=== PATIENT | female | born 1945 | race Two or more races ===

== ENCOUNTER 2024-03-29 11:47 | Emergency (ER) | payer OTHER ==
[~2024-03-29] VITALS: Ht 152.4 cm; Wt 76.0 kg
[2024-03-29 11:49] VITALS: BP 154/104; RESP 18; O2SAT 98
--- NOTE | 2024-03-29 12:10 | ED.PDOC ---
HPI (NEURO) HPI Comments 78 y.o female with PMHx of arthritis, presents to the ED for a chief complaint of left sided facial droop that started one hour ago. Patient was BIB daughter who reports her son noticed patient's droop at home. Patient is ambulatory with assistance by daughter, denies any focal extremity weaknesses or numbness sensation. Patient is alert and oriented x 4. Patient mentions having left leg surgery, unknown of what procedure x 2 years ago and has chronic numbness to that side. She denies any slurred speech, confusions, nausea, vomiting, abdominal pain, fever, or chills. Patient did mention chest pain last night but since has resolved on its own. Upon ED arrival, blood pressure read 154/104. Chief Complaint: Right Sided Weakness Time Seen by MD: 11:48 Primary Care Provider: divya Reyes Notes: Nurses Notes, Medications, Allergies Information Source: Patient Mode of Arrival: Ambulatory Severity: Moderate Timing: Hours Onset: At rest Circumstances: Spontaneous History of: None Modifying factors: Nothing Associated Signs and Symptoms: Other Past Medical History PAST MEDICAL HISTORY: Arthritis Past Medical History (Other): chronic back pain Surgical History: Hysterectomy Surgical History (Other): left hip CORRECTIONS CADET History: No Pertinent CORRECTIONS CADET History Family History Family History: Reviewed,noncontributory to illness Social History Smoker: Cigarettes Alcohol: Denies ETOH Use Drugs: Denies Drug Use Lives In: Home Constitutional: denies: chills, diaphoresis, fatigue, fever, malaise, sweats, weakness, others EENTM: denies: blurred vision, double vision, ear bleeding, ear discharge, ear drainage, ear pain, ear ringing, eye pain, eye redness, hearing loss, mouth sirena n, mouth swelling, nasal discharge, nose bleeding, nose congestion, nose pain, photophobia, tearing, throat pain, throat swelling, voice changes, others Respiratory: denies: cough, hemoptysis, orthopnea, SOB at rest, shortness of breath, SOB with excertion, stridor, wheezing, others Cardiovascular: denies: chest pain, dizzy spells, diaphoresis, Dyspnea on exertion, edema, irregular heart beat, left arm pain, lightheadedness, palpitations, PND, syncope, others Gastrointestinal: denies: abdomen distended, abdominal pain, blood streaked bowels, constipated, diarrhea, dysphagia, difficulty swallowing, hematemesis, melena, nausea, poor appetite, poor fluid intake, rectal bleeding, rectal pain, vomiting, others Genitourinary: denies: abnormal vagina bleeding, burning, dyspareunia, dysuria, flank pain, frequency, hematuria, incontinence, pain, , vagina discharge, urgency, others Neurological: reports: others (left sided facial droop ); denies: dizziness, fainting, headache, left sided numbness, left sided weakness, numbness, paresthesia, pre-existing deficit, right sided numbness, right sided weakness, seizure, speech problems, tingling, tremors, weakness Musculoskeletal: denies: back pain, gout, joint pain, joint swelling, muscle pain, muscle stiffness, neck pain, others Integumetry: denies: bruises, change in color, change in hair/nails, dryness, laceration, lesions, lumps, rash, wounds, others Allergic/Immunocompromised: denies: Difficulty Healing, Frequent Infections, Hives, Itching, others Hematologic/Lymphatic: denies: anemia, blood clots, easy bleeding, easy bruising, swollen glands, others Endocrine: denies: excessive hunger, excessive sweating, excessive thirst, excessive urination, flushing, intolerance to cold, intolerance to heat, unexplained weight gain, unexplained weight loss, others Psychiatric: denies: anxiety, bipolar disorder, depression, hopeless, panic disorder, schizophrenia, sleepless, suicidal, others All Other Systems: Reviewed and Negative Physical Exam General Appearance: Mild Distress HEENT: Normal ENT Inspection, Pharynx Normal, TMs Normal Neck: Full Range of Motion, Non-Tender, Normal, Normal Inspection Respiratory: Chest Non-Tender, Lungs Clear, No Accessory Muscle Use, No Respiratory Distress, Normal Breath Sounds Cardiovascular: No Edema, No JVD, No Murmur, No Gallop, Normal Peripheral Pulses, Regular Rate/Rhythm Breast Exam: Deferred Gastrointestinal: No Organomegaly, Non Tender, No Pulsatile Mass, Normal Bowel Sounds, Soft Genitalia: Deferred Pelvic: Deferred Rectal: Deferred Extremities: No calf tenderness, Normal capillary refill, Normal inspection, Normal range of motion, Non-tender, No pedal edema Musculoskeletal : Apperance: Normal Neurologic: Alert, Facial Droop (Left-sided facial droop), Normal Affect, Normal Mood, No Sensory Deficits Cerebellar Function: Normal Reflexes: Normal Skin: Dry, Normal Color, Warm Lymphatic: No Adenopathy EKG EKG : Pulse Rate (adult): 77 [place]: Normal Cardiac Rhythm: NSR ST: Nonsp Was a procedure done? Was a procedure done?: No Differential Diagnosis (SZ) Seizure: N/A CVA: Casarez's Palsy, CVA, Delirium Tremens, Electrolyte Imbalance, TIA General Weakness: Electrolyte imbalance X-Ray, Labs, Meds, VS Vital Signs Date Time Temp Pulse Resp B/P (MAP) Pulse Ox O2 Delivery O2 Flow Rate FiO2 03/29/24 12:27 77 03/29/24 11:57 77 03/29/24 11:49 98.2 94 18 204/112 (142) 98 154/104 (121) Lab Test 03/29/24 13:27 Range/Units White Blood Count 7.7 4.4-10.8 10^3/uL Red Blood Count 4.55 4.0-5.20 10^6/uL Hemoglobin 13.8 12.2-16.2 g/dL Hematocrit 40.6 36.0-46.0 % Mean Corpuscular Volume 89.2 80.0-100.0 fL Mean Corpuscular Hemoglobin 30.3 28.0-32.0 pg Mean Corpuscular Hemoglobin Concent 34.0 32.0-36.0 g/dL Red Cell Distribution Width 13.5 11.8-14.3 % Platelet Count 270 140-450 10^3/uL Mean Platelet Volume 8.0 6.9-10.8 fL Neutrophils (%) (Auto) 68.4 37.0-80.0 % Lymphocytes (%) (Auto) 22.1 10.0-50.0 % Monocytes (%) (Auto) 7.4 0.0-12.0 % Eosinophils (%) (Auto) 1.6 0.0-7.0 % Basophils (%) (Auto) 0.5 0.0-2.0 % Neutrophils # (Auto) 5.2 1.6-8.6 10 ^3/uL Lymphocytes # (Auto) 1.7 0.4-5.4 10 ^3/uL Monocytes # (Auto) 0.6 0-1.3 10 ^3/uL Eosinophils # (Auto) 0.1 0-0.8 10 ^3/uL Basophils # (Auto) 0 0-0.2 10 ^3/uL Nucleated Red Blood Cells 0.0 % Sodium Level 139 136-145 mmol/L Potassium Level 4.1 3.5-5.1 mmol/L Chloride Level 106 98-107 mmol/L Carbon Dioxide Level 25 20-31 mmol/L Anion Gap 8 5-15 Blood Urea Nitrogen 12 9-23 mg/dL Creatinine 0.89 0.550-1.02 mg/dL Glomerular Filtration Rate Calc 66 >90 mL/min BUN/Creatinine Ratio 13.5 10.0-20.0 Serum Glucose 99 74-106 mg/dL Calcium Level 10.4 8.7-10.4 mg/dL CT scan of the head is negative. We are repeating the patient's blood pressure as it was significantly elevated. We are giving the patient has some clonidine 0.2 mg by mouth. The patient's CBC is within normal limits The chemistry panel is within normal limits At this time the patient's blood pressure has remained elevated at so we are admitting with a diagnosis of accelerated hypertension as well as a Casarez's palsy A neurology consult will most likely be obtained Images Reviewed?: Images reviewed and evaluated by me Time of 1ST Reevaluation: 12:06 Reevaluation 1ST: Unchanged Patient Education/Counseling: Diagnosis, Treatment, Prognosis Family Education/Counseling: Diagnosis, Treatment, Prognosis Departure 1 Departure Time of Disposition: 12:26 Impression: Primary Impression: Casarez's palsy Additional Impression: Accelerated hypertension Disposition: ADMITTED INPATIENT Admit to: Tele Condition: Fair e-Prescriptions Methylprednisolone (Medrol Dosepak) 4 Mg Tyson 4 MG PO UD, #21 TAB UAD Prov: AMILCAR CHANG MD 03/29/24 Critical Care Note Critical Care Time?: No Stability Stability form required: Yes Unstable for transfer: Telemetry monitoring (Telemetry monitoring required), ED Physician Assesment (Clinical assesment) I personally scribed for AMILCAR CHANG MD ([email or web address]) on 03/29/24 at 12:10. Electronically submitted by Eliza Mckeon ([facility]). AMILCAR CHANG MD Mar 29, 2024 12:10
--- NOTE | 2024-03-29 12:15 | DVH ---
EXAM: CT HEAD WITHOUT CONTRAST HISTORY: weakness COMPARISON: None TECHNIQUE: Axial images of the head were obtained and reformatted in coronal and sagittal planes. All CT scans at this medical facility are performed using dose modulation techniques as appropriate t o a performed exam including the following: Automated exposure control was utilized; adjustment of th e MA and/or KV according to patient size; and use of iterative reconstruction technique. CT Dose: CTDI volume is 51.19 mGy. Dose-length product is 906.59 mGy*cm FINDINGS: There is no evidence of acute intracranial hemorrhage, mass, mass effect midline shift. There is no h ydrocephalus or extra-axial fluid collection. Art-white matter differentiation is maintained. The visualized paranasal sinuses and mastoid air cells are clear. The calvarium is intact. IMPRESSION: 1. No acute intracranial process. HS:Y
[2024-03-29] MEDS ORDERED: METH4PAK PO (12:25)
[2024-03-29 12:27] VITALS: PULSE 77
[2024-03-29] MEDS ORDERED: cloNIDine HCL 0.1 MG TAB PO ONE (12:30)
--- NOTE | 2024-03-29 13:05 | ECG ---
[facility], [place] Test Date: 2024-03-29 Test Time: 11:57:18 Pat Name: GABRIELLA BUCKNER Department: ER Room: Gender: F Channel Development Manager: DORA : 1945 Requested By: AMILCAR CHANG Order Number: [id number] Reading MD: Jm Lizarraga Measurements Intervals [place] Rate: 77 P: 52 W[place]: 144 QRS: 35 QRSD: 78 T: 23 QT: 371 QTc: 420 Interpretive Statements Sinus rhythm Ventricular premature complex Electronically Signed On 03-30-2024 18:24:53 PST by Jm Lizarraga Please click the below link to view image of tracing.
[2024-03-29 13:48] LABS: Basophils # (auto) 0 10 ^3/uL (0-0.2); Basophils % (auto) 0.5 % (0.0-2.0); Eosinophils # (auto) 0.1 10 ^3/uL (0-0.8); Eosinophils % (auto) 1.6 % (0.0-7.0); Hematocrit 40.6 % (36.0-46.0); Hemoglobin 13.8 g/dL (12.2-16.2); Lymphocytes # (auto) 1.7 10 ^3/uL (0.4-5.4); Lymphocytes % (auto) 22.1 % (10.0-50.0); Mean Corpuscular Hemoglobin 30.3 pg (28.0-32.0); Mean Corpuscular Volume 89.2 fL (80.0-100.0); Monocytes # (auto) 0.6 10 ^3/uL (0-1.3); Monocytes % (auto) 7.4 % (0.0-12.0); Neutrophils # (auto) 5.2 10 ^3/uL (1.6-8.6); Neutrophils % (auto) 68.4 % (37.0-80.0); Platelet Count (auto) 270 10^3/uL (140-450); Red Blood Cells 4.55 10^6/uL (4.0-5.20); Red Cell Distribution Width 13.5 % (11.8-14.3); White Blood Cell 7.7 10^3/uL (4.4-10.8)
[2024-03-29 13:54] LABS: Anion Gap 8 (5-15); Carbon Dioxide 25 mmol/L (20-31); Chloride 106 mmol/L (98-107); Potassium 4.1 mmol/L (3.5-5.1); Sodium 139 mmol/L (136-145)
[2024-03-29 14:00] LABS: BUN/Creatinine Ratio 13.5 (10.0-20.0); Blood Urea Nitrogen 12 mg/dL (9-23); Calcium 10.4 mg/dL (8.7-10.4); Glucose 99 mg/dL (74-106)
== END 2024-03-29 21:09 | disposition left against medical advice (07) ==
LOC: ER 11:47
DX: G51.0 Bell's palsy (principal); I10 Essential (primary) hypertension; F17.210 Nicotine dependence, cigarettes, uncomplicated; Z90.710 Acquired absence of both cervix and uterus
CPT/HCPCS: 36415; 70450; 80048; 85025; 93005

== ENCOUNTER 2024-03-30 13:15 | Inpatient (IN) | payer OTHER ==
[~2024-03-30] VITALS: Ht 170.2 cm; Wt 78.9 kg
[~2024-03-30 13:15] MED LIST: METH4PAK PO
--- NOTE | 2024-03-30 13:52 | ED.PDOC ---
History of Present Illness HPI Comments 78 year old female presents to the ED with a chief complaint of LT sided numbness onset yesterday. Patient was seen in this ED yesterday, was going to be admitted but did not want to wait and decided to leave. Patient called PCP today, was told to come back to ED. PMHx arthritis. She denies any slurred speech, confusions, nausea, vomiting, abdominal pain, fever, or chills. 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 History Family History Family History: Reviewed,noncontributory to illness Social History Smoker: Cigarettes Alcohol: Denies ETOH Use Drugs: Denies Drug Use Lives In: Home Constitutional: denies: chills, diaphoresis, fatigue, fever, malaise, sweats, weakness, others EENTM: denies: blurred vision, double vision, ear bleeding, ear discharge, ear drainage, ear pain, ear ringing, eye pain, eye redness, hearing loss, mouth pain, mouth swelling, nasal discharge, nose bleeding, nose congestion, nose pain, photophobia, tearing, throat pain, throat swelling, voice changes, others Respiratory: denies: cough, hemoptysis, orthopnea, SOB at rest, shortness of breath, SOB with excertion, stridor, wheezing, others Cardiovascular: denies: chest pain, dizzy spells, diaphoresis, Dyspnea on exertion, edema, irregular heart beat, left arm pain, lightheadedness, palpitations, PND, syncope, others Gastrointestinal: denies: abdomen distended, abdominal pain, blood streaked bowels, constipated, diarrhea, dysphagia, difficulty swallowing, hematemesis, melena, nausea, poor appetite, poor fluid intake, rectal bleeding, rectal pain, vomiting, others Genitourinary: denies: abnormal vagina bleeding, burning, dyspareunia, dysuria, flank pain, frequency, hematuria, incontinence, pain, , vagina discharge , urgency, others Neurological: reports: left sided numbness, left sided weakness; denies: dizziness, fainting, headache, numbness, paresthesia, pre-existing deficit, right sided numbness, right sided weakness, seizure, speech problems, tingling, tremors, weakness, others Musculoskeletal: denies: back pain, gout, joint pain, joint swelling, muscle pain, muscle stiffness, neck pain, others Integumetry: denies: bruises, change in color, change in hair/nails, dryness, laceration, lesions, lumps, rash, wounds, others Allergic/Immunocompromised: denies: Difficulty Healing, Frequent Infections, Hives, Itching, others Hematologic/Lymphatic: denies: anemia, blood clots, easy bleeding, easy bruising, swollen glands, others Endocrine: denies: excessive hunger, excessive sweating, excessive thirst, excessive urination, flushing, intolerance to cold, intolerance to heat, unexplained weight gain, unexplained weight loss, others Psychiatric: denies: anxiety, bipolar disorder, depression, hopeless, panic disorder, schizophrenia, sleepless, suicidal, others All Other Systems: Reviewed and Negative Physical Exam General Appearance: Moderate Distress HEENT: Normal ENT Inspection, Pharynx Normal, TMs Normal Neck: Full Range of Motion, Non-Tender, Normal, Normal Inspection Respiratory: Chest Non-Tender, Lungs Clear, No Accessory Muscle Use, No Respiratory Distress, Normal Breath Sounds Cardiovascular: No Edema, No JVD, No Murmur, No Gallop, Normal Peripheral Pulses, Regular Rate/Rhythm Breast Exam: Deferred Gastrointestinal: No Organomegaly, Non Tender, No Pulsatile Mass, Normal Bowel Sounds, Soft Genitalia: Deferred Pelvic: Deferred Rectal: Deferred Extremities: No calf tenderness, Normal capillary refill, Normal inspection, Normal range of motion, Non-tender, No pedal edema Musculoskeletal : Apperance: Normal Neurologic: Facial Droop Cerebellar Function: NOT DONE Reflexes: NOT DONE Skin: Dry, Normal Color, Warm Peripheral Pulses: 3+ Radial (R), 3+ Radial (L) Lymphatic: No Adenopathy Was a procedure done? Was a procedure done?: No Differential Dx Considerations may include: CVA Casarez's palsy X-Ray, Labs, Meds, VS Vital Signs Date Time Temp Pulse Resp B/P (MAP) Pulse Ox O2 Delivery O2 Flow Rate FiO2 03/30/24 13:40 98.3 59 20 156/58 (90) 99 Current Medications Medications (Trade) Dose Ordered Sig/Anjel Route Start Time Stop Time Status Last Admin Prednisone 40 mg ONCE ONCE PO 03/30/24 14:00 03/30/24 14:01 DC 03/30/24 14:51 Patient alert. Has Casarez's palsy. Possible TIA versus CVA. Vitals stable. Was seen here yesterday for similar condition but left. She will need MRI. Was given steroid. Moving her upper extremity well compared to lower extremity. Reviewed her previous visit. Explained to the patient. Continue cardiac monitoring. Time of 1ST Reevaluation: 14:14 Reevaluation 1ST: Unchanged Patient Education/Counseling: Diagnosis, Treatment, Prognosis Family Education/Counseling: No Family Present Additional Information I reviewed the following notes from patient's past medical encounters: The following tests were ordered, and results were reviewed by me: SATINDER I discussed treatment and results with medical personnel and: patient Departure 1 Departure Time of Disposition: 15:17 Impression: Primary Impression: Casarez's palsy Additional Impression: HTN (hypertension) Qualified Codes: I10 - Essential (primary) hypertension Disposition: ADMITTED INPATIENT Admit to: Med Surg Condition: Guarded Critical Care Note Critical Care Time?: No Stability Stability form required: No Heart Score Heart Score: Heart Score Response (Comments) Value History N/A 0 EKG N/A 0 Age N/A 0 Risk Factors N/A 0 Troponin N/A 0 Total 0 I personally scribed for NUNO CONDE MD ([email or web address]) on 03/30/24 at 13:52. Electronically submitted by Brie Faith ([email or web address]). I personally scribed for NUNO CONDE MD ([email or web address]) on 03/30/24 at 15:11. Electronically submitted by Brie Faith ([email or web address]). NUNO CONDE MD Mar 30, 2024 13:52
[2024-03-30] MEDS: PANTOPRAZOLE 40 MG/10 ML VIAL INJ IV ONE (14:00)
[2024-03-30] MEDS: predniSONE 20 MG TAB PO ONE (14:51)
[2024-03-30] MEDS ORDERED: ACETAMINOPHEN 325 MG TAB PO PRN (21:30)
--- NOTE | 2024-03-30 22:34 | DVHHPRES ---
History of Present Illness Resident Creating Document: FÉLIX CARPENTER History of Present Illness This is a 78-year-old female with past medical history of left hip replacement, hypertension, arthritis who presented to the ED yesterday and eloped. Today he she presented back to the ED with similar symptoms of left-sided weakness and left facial droop. The patient states that she was fine at home and at 10:00 a.m. she started feeling a weird sensation in the left side of the face that was characterized by left facial weakness with labial droop and inability to perform normal movements with her mouth. The patient denied any upper or lower extremity weakness, numbness sensation, decreasing motor or sensory at this time. Upon my examination there is complete left facial weakness compromise in the left frontal area with left labial droop. There is no changes in speech, numbness, tingling or motor dysfunction in any other place of her body. The patient states that smokes around 15 cigarettes daily but denies drug consumption. The patient denied any sick contacts or recent flu-like symptoms in the past months. We will start the patient on prednisone 60 mg daily, acyclovir 400 mg 5 times a day, left eye protection to prevent abrasion with ophthalmic artificial tears. We will admit the patient for further assessment and management. Cardiovascular: HTN Musculoskeletal: Osteoarthritis Past Surgical History: Total hip replacement (ON THE LEFT HIP) Family History: None Smoke: <1 pack per day ALCOHOL: occassional Drugs: None Lives: with Family Domestic Violence: Neg Review of Systems Constitutional: No: Fever, Chills, Sweats, Weakness, Malaise, Other Eyes: Vision change, Other (UNABLE TO CLOSE LEFT EYE); No: Pain, Conjunctivae inflammation, Eyelid inflammation, Redness ENT: No: Ear pain, Ear discharge, Nose pain, Nose discharge, Nose congestion, Mouth pain, Mouth swelling, Throat pain, Throat swelling, Other Respiratory: No: Cough, Dry, Shortness of breath, SOB with excertion, Wheezing, Hemoptysis, Pleuritic Pain, Sputum, Wheezing, Other Cardiovascular: No: Chest Pain, Palpitations, Orthopnea, Paroxysmal Noc. Dyspne a, Edema, Lt Headedness, Other Gastrointestinal: No: Nausea, Vomiting, Abdominal Pain, Diarrhea, Constipation, Melena, Hematochezia, Other Genitourinary: No Dysuria, No Frequency, No Incontinence, No Hematuria, No Retention, No Other Musculoskeletal: other; No: neck pain, shoulder pain, arm pain, back pain, hand pain, leg pain, foot pain Skin: No: Rash, Lesions, Jaundice, Bruising, Other Neurological: No: Weakness, Numbness, Incoordination, Change in speech, Confusion, Seizures, Other Allergies: Coded Allergies: Morphine (Verified Allergy, Unknown, 03/30/24) Exam Vital Signs Vital Signs Date Time Temp Pulse Resp B/P (MAP) Pulse Ox O2 Delivery O2 Flow Rate FiO2 03/30/24 17:25 98.2 57 14 159/63 (95) 98 98.2 03/30/24 15:00 Room Air* 0 21 General Appearance: Alert, Oriented X3, Cooperative, No acute distress HEENT: Atraumatic, PERRLA, EOMI, Mucous membr. moist/pink Respiratory: Clear to auscultation, Normal air movement Cardiovascular: Regular rate, Normal S1, Normal S2, No murmurs Abdominal: Normal bowel sounds, Soft, No tenderness, No hepatospenomegaly Extremities: No clubbing, No cyanosis, No edema, Normal pulses, No tenderness/swelling Skin: No rashes, No breakdown, No significant lesion Neuro: Normal gait, Normal speech, Strength at 5/5 X4 ext, Normal tone, Sensation intact, Cranial nerves 3-12 NL, Reflexes 2+, Other (PATIENT HAS LEFT FACIAL WEAKNESS INCLUDING LEFT FRONTAL AREA AND LABIAL DROOP. UNABLE TO CLOSE THE LEFT EYE.) Psych/Mental Status: Mental status NL, Mood NL Assessment/Plan Assessment/Plan Assessment/Plan Acute left facial weakness likely due to [place] Palsy [place] [facility] Grade IV-V Ruled out acute stroke -CT scan of the head showed no acute intracranial abn -Ordered MRI of the brain -Whole left side of face is weak including left frontal area consistent with [place] Palsy -Start prednisone 60mg daily for 5 days and then taper to 10mg daily additional 5 days -Start Acyclovir 400mg 5 times daily -Start pantoprazole 40mg daily as gastric protection -Artificial tears for left eye abrasion prevention -Physical therapy -Start aspirin 81mg daily due to age, multiple comorbidities CVA prevention Primary hypertension -Start losartan 25mg daily -Monitor BP closely Dyslipidemia -Lipid panel ordered, tot chol 263, LDL 202 -Start atorvastatin 80mg daily Hx of arthritis -Takes ibuprophen at home as needed -Monitor symptoms Goals of care discussed with the patient, FULL CODE Plan discussed with Dr. Del Valle Plan discussed with: Patient My Orders Orders - FÉLIX CARPENTER Procedure Category Date Status Time Admit ADMIT 03/30/24 Transmitted 21:24 Code Status CODE 03/30/24 Transmitted 21:24 Vital Signs [facility] 03/30/24 In Process 21:24 Review Orders With NADYA 03/30/24 In Process Adm.Md 21:24 Regular Diet DIET 03/31/24 Transmitted Breakfast Sodium Chloride 0.9% PHA 03/30/24 Logged 21:30 Acetaminophen Tablet PHA 03/30/24 Logged (Tylenol Tablet) 21:30 Notify Of Changes [facility] 03/30/24 In Process From Base 21:24 Advance Directive [facility] 03/30/24 In Process 21:24 Echo 2d Mode Cardiac US 03/30/24 Logged DOP 21:24 Complete Blood Count LAB 03/30/24 Logged 21:24 Lipid Panel LAB 03/30/24 Logged 21:24 Patient Condition ORDERS 03/30/24 Transmitted 21:24 Allergies NADYA 03/30/24 In Process 21:24 Drug Screen LAB 03/30/24 Logged 21:24 Ambulate Every 4hours NADYA 03/30/24 In Process 21:24 Hemoglobin A1c LAB 03/30/24 Logged 21:24 Enoxaparin Sodium PHA 03/31/24 Logged (Lovenox) 10:00 Electrocardigram EKG 03/30/24 Logged 21:24 Prednisone Tablet PHA 03/31/24 Logged 10:00 Pantoprazole Tablet PHA 03/31/24 Logged (Protonix Tablet) 10:00 Acyclovir Tablet PHA 03/30/24 Logged (Zovirax Tablet) 22:00 Artificial Tear 15ml PHA 03/30/24 Logged Opthalmic (Tears Na 22:00 Date of Service: Mar 30, 2024 Billing Provider: FAZAL DEL VALLE MD Common Visit Codes: 45012-HGFBTEC INP/OBS CARE (HIGH) Secondary Visit Codes: 68050-JSFAOTVZ CARE PLAN 30 MINUTES FÉLIX CARPENTER Mar 30, 2024 22:34 FAZAL DEL VALLE MD Mar 31, 2024 17:59
[2024-03-30 22:47] LABS: Basophils # (auto) 0 10 ^3/uL (0-0.2); Basophils % (auto) 0.2 % (0.0-2.0); Eosinophils # (auto) 0 10 ^3/uL (0-0.8); Eosinophils % (auto) 0.1 % (0.0-7.0); Hematocrit 40.6 % (36.0-46.0); Hemoglobin 13.6 g/dL (12.2-16.2); Lymphocytes # (auto) 0.9 10 ^3/uL (0.4-5.4); Lymphocytes % (auto) 9.7 % (10.0-50.0); Mean Corpuscular Hemoglobin 30.1 pg (28.0-32.0); Mean Corpuscular Hgb Conc. 33.6 g/dL (32.0-36.0); Mean Corpuscular Volume 89.7 fL (80.0-100.0); Monocytes # (auto) 0.2 10 ^3/uL (0-1.3); Monocytes % (auto) 2.3 % (0.0-12.0); Neutrophils # (auto) 8.2 10 ^3/uL (1.6-8.6); Neutrophils % (auto) 87.7 % (37.0-80.0); Platelet Count (auto) 285 10^3/uL (140-450); Red Blood Cells 4.52 10^6/uL (4.0-5.20); Red Cell Distribution Width 13.4 % (11.8-14.3); White Blood Cell 9.4 10^3/uL (4.4-10.8)
[2024-03-30 23:04] LABS: Alanine Aminotransferase 11 U/L (7-40); Albumin 4.6 g/dL (3.2-4.8); Anion Gap 8 (5-15); BUN/Creatinine Ratio 13.1 (10.0-20.0); Blood Urea Nitrogen 14 mg/dL (9-23); Calcium 10.4 mg/dL (8.7-10.4); Carbon Dioxide 27 mmol/L (20-31); Chloride 105 mmol/L (98-107); Potassium 4.2 mmol/L (3.5-5.1); Sodium 140 mmol/L (136-145); Triglycerides 135 mg/dL (< 150)
[2024-03-30 23:05] LABS: Bilirubin, Total 0.5 mg/dL (0.2-1.0); Total Protein 7.4 g/dL (5.7-8.2)
[2024-03-30 23:07] LABS: Alkaline Phosphatase 122 U/L (46-116); Aspartate Aminotransferase 12 U/L (13-40); Cholesterol 263 mg/dL (< 200); Glucose 162 mg/dL (74-106); HDL Cholesterol 64 mg/dL (40-59); LDL Cholesterol 202 mg/dL (< 100)
[2024-03-31] VITALS (7 sets, daily range): BP systolic 118–154; BP diastolic 51–74; PULSE 58–73; RESP 16–20; TEMP 97.6–98.2; O2SAT 95–99
[2024-03-31] MEDS: ARTIFICIAL TEARS 15ml EACHEYE SCH (00:29)
[2024-03-31] MEDS: ACYCLOVIR 400 MG TAB PO SCH (00:29)
[2024-03-31] MEDS ORDERED: TIMO0.5S28 EACHEYE (01:26)
[2024-03-31] MEDS ORDERED: GABA-1308 PO (01:26)
[2024-03-31] MEDS ORDERED: IBUP-1454 PO (01:26)
[2024-03-31] MEDS ORDERED: TIMO0.5S28 OP (01:26)
[2024-03-31] MEDS ORDERED: ATEN-60 PO (01:26)
[2024-03-31] MEDS ORDERED: BRIM0.159 OP (01:26)
[2024-03-31] MEDS: SODIUM CHLORIDE 0.9% 1,000 ML IV SCH (02:29)
[2024-03-31] MEDS: predniSONE 20 MG TAB PO SCH (09:23)
[2024-03-31] MEDS: LOSARTAN POTASSIUM 25 MG TAB PO SCH (09:23)
[2024-03-31] MEDS: ASPirin 81 mg TAB PO SCH (09:23)
[2024-03-31] MEDS: ENOXAPARIN SOD 40 MG/0.4 ML SYRINGE SC SCH (09:23)
[2024-03-31] MEDS: PANTOPRAZOLE 40 MG TAB PO SCH (09:24)
--- NOTE | 2024-03-31 10:39 | DVH ---
PROCEDURE: MRI BRAIN HEAD WO CONTRAST INDICATION: r/o acute stroke or structural abn EXAM DATE: 03/31/2024 10:09 AM COMPARISON: None TECHNIQUE: MRI of the brain without intravenous contrast. FINDINGS: Diffusion weighted images of the brain demonstrate no evidence of acute infarction. There is no evidence of acute intracranial hemorrhage, extra-axial collection, mass effect, midline s hift, herniation or hydrocephalus. The ventricles, sulci and cisterns appear age appropriate. Mild changes of chronic microvascular ischemic disease. Pituitary is mildly prominent. There are no signal abnormalities on the susceptibility weighted sequences. The major vascular flow voids are present. The visualized paranasal sinuses and mastoid air cells are clear. The surrounding soft tissues and o sseous structures are unremarkable. IMPRESSION: 1. No evidence of acute infarction, intracranial hemorrhage, mass effect or hydrocephalus. Mild miramontes es of chronic microvascular ischemic disease. Mild prominence of the pituitary gland. If there is co ncern for pituitary microadenoma consider further evaluation with MRI of brain with pituitary protoc ol with contrast. HS:Y
[2024-03-31 10:45] LABS: Urine Bacteria None Seen /hpf (None Seen)
[2024-03-31 11:17] LABS: Urine Blood Negative /uL (Negative); Urine Clarity Clear (Clear); Urine Color Light-Yellow (Yellow); Urine Protein, UAD Negative (Negative); Urine Specific Gravity 1.013 (1.001-1.035); Urine Squamous Epithelial Cell FEW /hpf (<5); Urine Urobilinogen Normal (Negative); Urine WBC 1 /hpf (0 - 5); Urine pH 5.5 (5.0-9.0)
[2024-03-31 11:26] LABS: Amphetamine Screen, Urine Neg (NEGATIVE); Barbiturate Scree,Urine Neg (NEGATIVE); Benzodiazephine Screen, Urine Neg (NEGATIVE); Cannabinoid Screen, Urine Neg (NEGATIVE); Cocaine Screen, Urine Neg (NEGATIVE); Opiate Scree,Urine Neg (NEGATIVE); Phencyclidine Screen, Urine Neg (NEGATIVE)
--- NOTE | 2024-03-31 14:21 | DVHSR ---
APPROVED REPORT EXAM: Two-dimensional and M-mode echocardiogram with Doppler, color Doppler and Bubble Study. Blood Pressure: 136/62 mmHg INDICATION R/O structural abn RISK FACTORS Height: 5'7", Weight: 173 DIMENSIONS LVDd4.5 (3.8-5.7cm)LA (2D)4.0 (1.9-4.0cm)Aortic Root3.4 (2.0-3.7cm) LVDs2.5 (2.5-4.0cm)LA (MM) (1.9-4.0cm)Aortic Cusp Exc1.9 (1.5-2.0cm) EF (%) 65.0 (55-70%)Rt. Atrium3.5 (1.9-4.0cm)Asc. Aorta3.2 cm IVSd0.7 (0.7-1.1cm)RV (D)3.5 (1.8-2.4cm) PWd0.9 (0.7-1.1cm) Mitral Valve MitralMitral Stenosis E wave0.73m/sMV Mean GR.mmHg A wave1.04m/sMV Peak GR.mmHg E/A ratio0.72D MVAcm2 DECEL [id number] 1/2 [place] Aortic Valve Aortic ValveAortic Stenosis V11.24m/Diane Mean GR.5mmHg V21.47m/Diane Peak GR.9mmHg LVOT Diameter2.2 (1.8-2.4cm)Doppler AVA3.20cm2 Pulmonic Valve V20.77m/s Tricuspid Valve TR Velocity2.30m/s [id number] LEFT VENTRICLE Normal left ventricular size. Left ventricular wall thickness is normal. Ejection fraction is jose l and is estimated at 65%. There is no regional wall motion abnormalities. Diastolic function is in determinate. RIGHT VENTRICLE Normal right ventricular size and systolic function. ATRIA Both atria are of normal size. MITRAL VALVE Normal in structure and function. There is mild mitral regurgitation. PULMONIC VALVE Likely normal. TRICUSPID VALVE Normal structure and function. There is trace tricuspid regurgitation. PA systolic pressure is yamil mated at 29 mm Hg. AORTIC VALVE Trileaflet in morphology. Leaflets are sclerotic. No significant stenosis or regurgitation. GREAT VESSELS The aortic root and proximal ascending aorta are of normal size. PERICARDIAL EFFUSION No pericardial effusion. IVC is of normal size and collapses normally with inspiration. Conclusion Normal left ventricular size and systolic function. Ejection fraction is estimated at 65%. Normal right ventricular size and systolic function. No hemodynamically significant valvular disease. PA systolic pressure is estimated at 29 mm Hg. No pericardial effusion.
[2024-03-31] MEDS ORDERED: PRED20TA2 PO (16:59)
[2024-03-31] MEDS ORDERED: ACYC1TAB2 PO (16:59)
--- NOTE | 2024-03-31 17:03 | DVHDS2 ---
Discharge Summary Date of Admission Mar 30, 2024 at 21:24 Date of Discharge: Mar 31, 2024 Admitting Diagnosis [facility] Labs/Diagnostic Data: Laboratory Results Test 03/31/24 10:00 03/30/24 22:18 Urine Color Light-yellow (Yellow) Urine Clarity Clear (Clear) Urine pH 5.5 (5.0-9.0) Urine Specific [place] 1.013 (1.001-1.035) Urine Protein Negative (Negative) Urine Ketones Negative (Negative) Urine Blood Negative /uL (Negative) Urine Nitrite Negative (Negative) Urine Bilirubin Negative (Negative) Urine Urobilinogen Normal mg/dL (Negative) Urine Leukocyte Esterase Negative /uL (Negative) Urine RBC 1 /hpf (0 - 4) Urine WBC 1 /hpf (0 - 5) Urine Squamous Epithelial Cells Few /hpf (<5) Urine Bacteria None seen /hpf (None Seen) Urine Glucose Normal mg/dL (Normal) Urine Opiates Screen Neg (NEGATIVE) Urine Fentanyl Screen Neg (NEGATIVE) Urine Barbiturates Screen Neg (NEGATIVE) Urine Phencyclidine Screen Neg (NEGATIVE) Urine Amphetamines Screen Neg (NEGATIVE) Urine Benzodiazepines Screen Neg (NEGATIVE) Urine Cocaine Screen Neg (NEGATIVE) Urine Cannabinoids Screen Neg (NEGATIVE) White Blood Count 9.4 10^3/uL (4.4-10.8) Red Blood Count 4.52 10^6/uL (4.0-5.20) Hemoglobin 13.6 g/dL (12.2-16.2) Hematocrit 40.6 % (36.0-46.0) Mean Corpuscular Volume 89.7 fL (80.0-100.0) Mean Corpuscular Hemoglobin 30.1 pg (28.0-32.0) Mean Corpuscular Hemoglobin Concent 33.6 g/dL (32.0-36.0) Red Cell Distribution Width 13.4 % (11.8-14.3) Platelet Count 285 10^3/uL (140-450) Mean Platelet Volume 8.1 fL (6.9-10.8) Neutrophils (%) (Auto) 87.7 % (37.0-80.0) Lymphocytes (%) (Auto) 9.7 % (10.0-50.0) Monocytes (%) (Auto) 2.3 % (0.0-12.0) Eosinophils (%) (Auto) 0.1 % (0.0-7.0) Basophils (%) (Auto) 0.2 % (0.0-2.0) Neutrophils # (Auto) 8.2 10 ^3/uL (1.6-8.6) Lymphocytes # (Auto) 0.9 10 ^3/uL (0.4-5.4) Monocytes # (Auto) 0.2 10 ^3/uL (0-1.3) Eosinophils # (Auto) 0 10 ^3/uL (0-0.8) Basophils # (Auto) 0 10 ^3/uL (0-0.2) Nucleated Red Blood Cells 0.0 % Sodium Level 140 mmol/L (136-145) Potassium Level 4.2 mmol/L (3.5-5.1) Chloride Level 105 mmol/L (98-107) Carbon Dioxide Level 27 mmol/L (20-31) Anion Gap 8 (5-15) Blood Urea Nitrogen 14 mg/dL (9-23) Creatinine 1.07 mg/dL (0.550-1.02) Glomerular Filtration Rate Calc 53 mL/min (>90) BUN/Creatinine Ratio 13.1 (10.0-20.0) Serum Glucose 162 mg/dL (74-106) Hemoglobin A1c 5.6 % A1C (<5.7) Calcium Level 10.4 mg/dL (8.7-10.4) Total Bilirubin 0.5 mg/dL (0.2-1.0) Aspartate Amino Transferase (AST) 12 U/L (13-40) Alanine Aminotransferase (ALT) 11 U/L (7-40) Alkaline Phosphatase 122 U/L (46-116) Total Protein 7.4 g/dL (5.7-8.2) Albumin 4.6 g/dL (3.2-4.8) Triglycerides Level 135 mg/dL (< 150) Cholesterol Level 263 mg/dL (< 200) LDL Cholesterol 202 mg/dL (< 100) HDL Cholesterol 64 mg/dL (40-59) Other Laboratory Tests 03/30/24 22:18 Brief Hx & Hospital Course: This is a 78-year-old female with past medical history of left hip replacement, hypertension, arthritis who presented to the ED yesterday and eloped. Today he she presented back to the ED with similar symptoms of left-sided weakness and left facial droop. The patient states that she was fine at home and at 10:00 a.m. she started feeling a weird sensation in the left side of the face that was characterized by left facial weakness with labial droop and inability to perform normal movements with her mouth. The patient denied any upper or lower extremity weakness, numbness sensation, decreasing motor or sensory at this time. Upon my examination there is complete left facial weakness compromise in the left frontal area with left labial droop. There is no changes in speech, numbness, tingling or motor dysfunction in any other place of her body. The patient states that smokes around 15 cigarettes daily but denies drug consumption. The patient denied any sick contacts or recent flu-like symptoms in the past months. We will start the patient on prednisone 40 mg daily, acyclovir 400 mg 5 times a day. Condition at Discharge: Stable Final Diagnosis/Problems List [facility] Discharge Disposition: Home Discharge Instruct/Medications Follow Up/Referral: Dr. Rosamaria Estrada/ Dr. Quevedo on Friday Medications: Prednisone and Acyclovir Discharge Statement: "Patient was advised to return to the ER or call 911 if any headaches, dizziness, shortness of breath, chest pain, abdominal pain, bleeding, fevers, or worsening of medical condition. Patient was counseled about treatment plan, medications, possible side effects, patientverbalized understanding. All questions were answered to the best of my ability. This discharge took greater then 30 minutes in planning, reviewing documentation, counseling the patient, and discussing with other team members." ASSESSMENT ASSESSMENT Assessment Date of Service: Mar 31, 2024 Billing Provider: FAZAL BAIRD MD Common Visit Codes: 37314-PVY/OBS DISCH DAY >30min FAZAL BAIRD MD Mar 31, 2024 17:03
[2024-03-31] MEDS ORDERED: ATORVASTATIN 20 MG TAB PO SCH (22:00)
== END 2024-03-31 21:07 | disposition home or self-care (01) | DRG 74 ==
LOC: ER 13:15 → OVERFLOW 21:24 → WEST WING 23:53
PROVIDERS: ADMIT Internal Medicine; ATTEND Internal Medicine
DX: G51.0 Bell's palsy (principal); I10 Essential (primary) hypertension; F17.210 Nicotine dependence, cigarettes, uncomplicated; Z96.642 Presence of left artificial hip joint; E78.5 Hyperlipidemia, unspecified; Z88.5 Allergy status to narcotic agent; Z90.710 Acquired absence of both cervix and uterus
CPT/HCPCS: 36415; 70450; 70551; 80048; 80053; 80061; 80307; 81001; 83036; 85025; 93005; 93306; G0378; J2470

== ENCOUNTER → 2024-04-26 | Outpatient (CLI) | payer OTHER ==
[~2024-04-26] MED LIST changes: +ACYC1TAB2 PO; +ATEN-60 PO; +BRIM0.159 OP; +GABA-1308 PO; -METH4PAK PO; +PRED20TA2 PO; +TIMO0.5S28 OP
[2024-04-26 10:50] LABS: Urine Bacteria None Seen /hpf (None Seen)
[2024-04-26 11:52] LABS: Basophils # (auto) 0 10 ^3/uL (0-0.2); Basophils % (auto) 0.8 % (0.0-2.0); Eosinophils # (auto) 0.1 10 ^3/uL (0-0.8); Eosinophils % (auto) 1.7 % (0.0-7.0); Hematocrit 39.4 % (36.0-46.0); Hemoglobin 13.3 g/dL (12.2-16.2); Lymphocytes # (auto) 1.7 10 ^3/uL (0.4-5.4); Lymphocytes % (auto) 27.1 % (10.0-50.0); Mean Corpuscular Hemoglobin 30.5 pg (28.0-32.0); Mean Corpuscular Hgb Conc. 33.8 g/dL (32.0-36.0); Mean Corpuscular Volume 90.3 fL (80.0-100.0); Monocytes # (auto) 0.5 10 ^3/uL (0-1.3); Monocytes % (auto) 7.9 % (0.0-12.0); Neutrophils # (auto) 3.8 10 ^3/uL (1.6-8.6); Neutrophils % (auto) 62.5 % (37.0-80.0); Nucleated Red Blood Cells % 0.1 %; Platelet Count (auto) 247 10^3/uL (140-450); Red Blood Cells 4.36 10^6/uL (4.0-5.20); Red Cell Distribution Width 13.9 % (11.8-14.3); White Blood Cell 6.1 10^3/uL (4.4-10.8)
[2024-04-26 12:13] LABS: Urine Blood TRACE /uL (Negative); Urine Clarity Clear (Clear); Urine Color Light-Yellow (Yellow); Urine Mucus FEW (None Seen); Urine Protein, UAD Negative (Negative); Urine Specific Gravity 1.016 (1.001-1.035); Urine Squamous Epithelial Cell FEW /hpf (<5); Urine Urobilinogen Normal (Negative); Urine WBC 1 /HPF (0-5); Urine pH 5.5 (5.0-9.0)
[2024-04-26 12:27] LABS: Alanine Aminotransferase 13 U/L (7-40); Albumin 4.5 g/dL (3.2-4.8); Aspartate Aminotransferase 13 U/L (13-40); BUN/Creatinine Ratio 11.2 (10.0-20.0); Bilirubin, Total 0.7 mg/dL (0.2-1.0); Blood Urea Nitrogen 10 mg/dL (9-23); Glucose 93 mg/dL (74-106); Total Protein 6.8 g/dL (5.7-8.2)
[2024-04-26 12:29] LABS: Chloride 106 mmol/L (98-107); Cholesterol 273 mg/dL (< 200); Potassium 4.1 mmol/L (3.5-5.1); Sodium 140 mmol/L (136-145); Triglycerides 151 mg/dL (< 150)
[2024-04-26 12:31] LABS: Anion Gap 6 (5-15)
[2024-04-26 12:32] LABS: Calcium 10.5 mg/dL (8.7-10.4); Carbon Dioxide 28 mmol/L (20-31)
[2024-04-26 12:46] LABS: Alkaline Phosphatase 99 U/L (46-116); HDL Cholesterol 61 mg/dL (40-59); LDL Cholesterol 202 mg/dL (< 100)
[2024-04-26 12:54] LABS: Erythrocyte Sedimentation Rate 23 mm/hr (0-20)
== END | disposition home or self-care (01) ==
LOC: LAB 10:29
PROVIDERS: ATTEND Internal Medicine
DX: Z00.01 Encounter for general adult medical examination with abnormal findings (principal); E55.0 Rickets, active
CPT/HCPCS: 36415; 80053; 80061; 81001; 82306; 83036; 84146; 84443; 85025; 85652

== ENCOUNTER 2024-09-27 11:31 | Outpatient (CLI) | payer OTHER ==
[2024-09-27 11:57] LABS: Hematocrit 39.5 % (36.0-46.0); Hemoglobin 13.6 g/dL (12.2-16.2); Mean Corpuscular Hemoglobin 30.1 pg (28.0-32.0); Mean Corpuscular Volume 87.3 fL (80.0-100.0); Nucleated Red Blood Cells % 0.0 %
[2024-09-27 12:20] LABS: Alanine Aminotransferase 12 U/L (7-40); Albumin 4.6 g/dL (3.2-4.8); Alkaline Phosphatase 107 U/L (46-116); Anion Gap 7 (5-15); BUN/Creatinine Ratio 10.9 (10.0-20.0); Blood Urea Nitrogen 11 mg/dL (9-23); Calcium 10.3 mg/dL (8.7-10.4); Carbon Dioxide 28 mmol/L (20-31); Chloride 106 mmol/L (98-107); Glucose 86 mg/dL (74-106); HDL Cholesterol 59 mg/dL (40-59); Potassium 4.5 mmol/L (3.5-5.1); Sodium 141 mmol/L (136-145); Total Protein 6.8 g/dL (5.7-8.2)
[2024-09-27 12:21] LABS: Bilirubin, Total 0.6 mg/dL (0.2-1.0)
[2024-09-27 12:22] LABS: Cholesterol 239 mg/dL (< 200); Triglycerides 218 mg/dL (< 150)
[2024-09-27 12:27] LABS: Urine Protein, UAD Negative (Negative)
== END 2024-09-27 17:00 | disposition home or self-care (01) ==
LOC: LAB 11:31
PROVIDERS: ATTEND Internal Medicine
DX: E55.0 Rickets, active (principal); Z00.01 Encounter for general adult medical examination with abnormal findings
CPT/HCPCS: 36415; 80053; 80061; 81001; 82043; 82306; 83036; 84443; 85025; 85652; 86141